=== PATIENT | female | born 1985 | race Caucasian/White ===

== ENCOUNTER 2019-01-10 16:18 | Inpatient (IN) | payer MEDICAID ==
[2019-01-10] MEDS ORDERED: METHYLERGONOVINE 0.2 MG INJ IM (19:00)
[2019-01-10] MEDS ORDERED: BUTORPHANOL 2 MG INJ IV (19:00)
[2019-01-10] MEDS ORDERED: CARBOPROST 250 MCG INJ IM (19:00)
[2019-01-10] MEDS ORDERED: BUTORPHANOL 1 MG INJ IV (19:00)
[2019-01-10] MEDS ORDERED: OXYTOCIN 30 UNITS/LR 500 ML IV (19:00)
[2019-01-10] MEDS: LACTATED RINGER'S 1,000 ML IV (19:35)
[2019-01-10 19:41] LABS: ADD MAN DIFF? NO
[2019-01-10 19:43] LABS: BASOPHILS % 0.3 % (0.0-2.0); EOSINOPHILS # 0.1 10^3/ul (0.0-0.5); EOSINOPHILS % 1.2 % (0.0-7.0); HEMATOCRIT 36.1 % (37.0-47.0); HEMOGLOBIN 12.1 g/dl (12.0-16.0); LYMPHOCYTES # 2.6 10^3/ul (0.8-2.9); LYMPHOCYTES % 25.2 % (15.0-51.0); MEAN CORPUSCULAR HEMOGLOBIN 29.2 pg (29.0-33.0); MEAN CORPUSCULAR HGB CONC 33.5 g/dl (32.0-37.0); MEAN CORPUSCULAR VOLUME 87.2 fl (82.0-101.0); MEAN PLATELET VOLUME 10.8 fl (7.4-10.4); MONOCYTE # 0.7 10^3/ul (0.3-0.9); MONOCYTES % 6.9 % (0.0-11.0); NEUTROPHIL # 6.7 10^3/ul (1.6-7.5); NEUTROPHILS % 65.8 % (39.0-77.0); PLATELET COUNT 335 10^3/UL (140-415); RED BLOOD COUNT 4.14 10^6/ul (4.20-5.40)
[2019-01-10 19:43] LABS: WHITE BLOOD COUNT 10.1 10^3/ul (4.8-10.8)
[2019-01-10 20:04] LABS: INR 0.97; PARTIAL THROMBOPLASTIN TIME 29.6 Sec (23.0-35.0)
[2019-01-10 21:09] LABS: HEPATITIS B SURFACE ANTIGEN NEGATIVE (NEGATIVE)
[2019-01-10] MEDS: MISOPROSTOL 50 MCG CAPSULE PO (21:19)
[2019-01-11] MEDS: LACTATED RINGER'S 1,000 ML IV ×3 (02:13→14:17)
[2019-01-11] MEDS: MISOPROSTOL 50 MCG CAPSULE PO ×2 (07:54→12:45)
[2019-01-11 16:03] LABS: RAPID PLASMA REAGIN NONREACTIVE (NR)
[2019-01-11] MEDS: LIDOCAINE 1% (MPF) 30 ML INJ INJ (22:09)
[2019-01-11] MEDS: OXYTOCIN 30 UNITS/LR 500 ML IV ×2 (22:11→22:51)
[2019-01-11] MEDS: MISOPROSTOL 200 MCG TAB PR (22:29)
[2019-01-11] MEDS: IBUPROFEN 600 MG TAB PO (22:29)
[2019-01-11] MEDS: MINERAL OIL LIGHT 10 ML VIAL TOP (23:19)
[2019-01-11] MEDS: ACETAMINOPHEN 500 MG TAB PO (23:31)
[2019-01-12] MEDS ORDERED: DEXTROSE 5%-LR 1,000 ML IV (00:09)
[2019-01-12] MEDS ORDERED: METHYLERGONOVINE 0.2 MG INJ IM (00:30)
[2019-01-12] MEDS ORDERED: DIBUCAINE 1% 30 GM OINT TOP (00:30)
[2019-01-12] MEDS ORDERED: SENNA/DOCUSATE NA (8.6MG/50MG) TAB PO (00:30)
[2019-01-12] MEDS ORDERED: CARBOPROST 250 MCG INJ IM (00:30)
[2019-01-12] MEDS ORDERED: ACETAMINOPHEN 325 MG TAB PO (00:30)
[2019-01-12] MEDS ORDERED: OXYCODONE/ASPIRIN (4.88/325) TAB PO (00:30)
[2019-01-12] MEDS: IBUPROFEN 600 MG TAB PO ×4 (00:30→17:37)
[2019-01-12] MEDS ORDERED: ZOLPIDEM 5 MG TAB PO (00:30)
[2019-01-12] MEDS ORDERED: OXYTOCIN 30 UNITS/LR 500 ML IV (00:30)
[2019-01-12] MEDS ORDERED: ONDANSETRON 4 MG INJ IV (00:30)
[2019-01-12] MEDS ORDERED: DIPHENHYDRAMINE 50 MG INJ IV (00:30)
[2019-01-12] MEDS ORDERED: MISOPROSTOL 200 MCG TAB PR (00:30)
[2019-01-12] MEDS: BENZOCAINE 20% 56 ML SPRAY TOP (01:10)
[2019-01-12] MEDS: WITCH HAZEL/GLYCERIN PAD PR (01:10)
[2019-01-12] MEDS: LANOLIN HPA 1 PKT TOP (01:10)
[2019-01-12] MEDS: LACTATED RINGER'S 1,000 ML IV* (03:10)
[2019-01-12 08:05] LABS: ADD MAN DIFF? NO
[2019-01-12 08:12] LABS: BASOPHILS % 0.2 % (0.0-2.0); HEMATOCRIT 31.1 % (37.0-47.0); HEMOGLOBIN 10.6 g/dl (12.0-16.0); LYMPHOCYTES # 2.1 10^3/ul (0.8-2.9); LYMPHOCYTES % 11.2 % (15.0-51.0); MEAN CORPUSCULAR HEMOGLOBIN 29.3 pg (29.0-33.0); MEAN CORPUSCULAR HGB CONC 34.1 g/dl (32.0-37.0); MEAN CORPUSCULAR VOLUME 85.9 fl (82.0-101.0); MEAN PLATELET VOLUME 10.7 fl (7.4-10.4); MONOCYTE # 1.3 10^3/ul (0.3-0.9); MONOCYTES % 6.8 % (0.0-11.0); NEUTROPHIL # 15.4 10^3/ul (1.6-7.5); NEUTROPHILS % 80.7 % (39.0-77.0); PLATELET COUNT 325 10^3/UL (140-415); RED BLOOD COUNT 3.62 10^6/ul (4.20-5.40); RED CELL DISTRIBUTION WIDTH 15.9 % (11.5-14.5)
[2019-01-12 08:12] LABS: WHITE BLOOD COUNT 19.1 10^3/ul (4.8-10.8)
[2019-01-13] MEDS: IBUPROFEN 600 MG TAB PO ×3 (00:27→12:26)
[2019-01-13] MEDS: MEASLES,MUMPS,RUBELLA VACCINE INJ SC* (09:02)
[2019-01-13 09:45] LABS: ADD MAN DIFF? NO
[2019-01-13 09:50] LABS: BASOPHILS % 0.3 % (0.0-2.0); EOSINOPHILS # 0.1 10^3/ul (0.0-0.5); EOSINOPHILS % 0.9 % (0.0-7.0); HEMATOCRIT 30.8 % (37.0-47.0); HEMOGLOBIN 10.2 g/dl (12.0-16.0); LYMPHOCYTES # 2.7 10^3/ul (0.8-2.9); LYMPHOCYTES % 17.3 % (15.0-51.0); MEAN CORPUSCULAR HEMOGLOBIN 28.9 pg (29.0-33.0); MEAN CORPUSCULAR HGB CONC 33.1 g/dl (32.0-37.0); MEAN CORPUSCULAR VOLUME 87.3 fl (82.0-101.0); MEAN PLATELET VOLUME 10.8 fl (7.4-10.4); MONOCYTE # 0.8 10^3/ul (0.3-0.9); MONOCYTES % 5.2 % (0.0-11.0); NEUTROPHIL # 11.8 10^3/ul (1.6-7.5); NEUTROPHILS % 75.3 % (39.0-77.0); PLATELET COUNT 315 10^3/UL (140-415); RED BLOOD COUNT 3.53 10^6/ul (4.20-5.40); RED CELL DISTRIBUTION WIDTH 16.7 % (11.5-14.5)
[2019-01-13 09:50] LABS: WHITE BLOOD COUNT 15.6 10^3/ul (4.8-10.8)
[2019-01-13] MEDS: DIPHTH/TET/ACEL PERTUSS (ADULT) 0.5 ML VIAL IM* (10:33)
== END 2019-01-13 13:48 | disposition home or self-care (01) | DRG 807 ==
LOC: OBT 16:18 → PP1 01-12 00:07 → L-D 16:19 → OBT 18:25 → L-D 18:25
PROVIDERS: Obstetrics & Gynecology
PROC: 10E0XZZ Delivery of Products of Conception, External Approach (ICD-10-PCS; principal; 2019-01-11)
PROC: 0HQ9XZZ Repair Perineum Skin, External Approach (ICD-10-PCS; 2019-01-11)
DX: O48.0 Post-term pregnancy (principal); Z37.0 Single live birth; O70.0 First degree perineal laceration during delivery; Z3A.40 40 weeks gestation of pregnancy
CPT/HCPCS: 76815; 76818; 85025; 85610; 85730; 86592; 86850; 86900; 86901; 87340; 90715; 99464